=== PATIENT | female | born 1950 | race Caucasian/White ===

== ENCOUNTER 2019-04-30 10:04 | Emergency (ER) | payer MEDICARE, OTHER, SELFPAY ==
--- NOTE | ~2019-04-30 | XR_ITS ---
EXAMINATION: XR chest 2V DATE: 04/30/2019 10:47 INDICATION: Cough. TECHNIQUE: Frontal and lateral views of the chest were obtained. COMPARISON: Chest 2 views 12/06/2013 FINDINGS: Calcified right lung nodules and calcified right hilar and mediastinal lymph nodes are cons istent with old granulomatous disease. No pleural effusion or pneumothorax. The heart size is normal. There is mild chronic anterior wedging of multiple midthoracic vertebral bodies. IMPRESSION: 1. No acute cardiopulmonary disease. Reviewed, dictated and finalized at location A. OR DEPARTMENT MANAGER
[2019-04-30 10:16] VITALS: BP 136/80; PULSE 86; RESP 18; TEMP 36.8; O2SAT 96
--- NOTE | 2019-04-30 10:29 | ED.URI ---
HPI - URI/Sore Throat General Chief Complaint: Upper Respiratory Infection Stated Complaint: cough/chest congestion Time Seen by Provider: 04/30/19 10:29 Source: patient Mode of arrival: ambulatory Limitations: no limitations History of Present Illness HPI Narrative: Trupti Ruiz is a 68 yo female with a negative PMH who comes to the [facility] with upper respiratory symptoms of sinus drainage, fever, cough, some wheezing. This started on Thursday after flight from [place] Related Data Home Medications Medication Instructions Recorded Confirmed aspirin 81 mg tablet,delayed 81 mg PO DAILY 01/17/19 04/30/19 release ergocalciferol (vitamin D2) 50 mcg 50 mcg PO DAILY 01/17/19 04/30/19 (2,000 unit) capsule furosemide 20 mg tablet 20 mg PO QAM 01/17/19 04/30/19 Allergies Allergy/AdvReac Type Severity Reaction Status Date / Time SHWETA Inhibitors Allergy Mild unknown Verified 04/14/19 09:05 Cephalosporins Allergy Mild unknown Verified 04/14/19 09:05 ranitidine Allergy Mild unknown Verified 04/14/19 09:05 No Known Allergies Allergy Verified 04/14/19 09:05 Review of Systems Review of Systems: Narrative: CONSTITUTIONAL: Denies fever, chills, sweats. EYES: Denies visual changes, redness, discharge. ENT: Denies rhinorrhea, has congestion, no sore throat, otalgia. CARDIOVASCULAR: Denies chest pain, palpitations, edema. RESPIRATORY: Denies dyspnea, has wheezing, cough GASTROINTESTINAL: Denies abdominal pain, nausea, vomiting, diarrhea. GENITOURINARY: Denies dysuria, hematuria, abnormal discharge SKIN: Denies rash or itching. NEUROLOGIC: Denies numbness, or focal weakness. PSYCHIATRIC: Denies anxiety or depression. [facility] Past Medical History Medical History Arthritis of knee Borderline diabetes BP (high blood pressure) Degenerative joint disease of knee GERD (gastroesophageal reflux disease) Mixed hyperlipidemia Family History Family History Mother Hypertension Family history of arthritis Father Cerebrovascular accident Family history of diabetes mellitus in first degree relative Family history of lung cancer Family history of heart disease in male family member before age 55 Other Diabetes mellitus Family history of malignant neoplasm Social History Social History Social History: Smoking status: Never smoker Second hand tobacco smoke exposure: No Alcohol intake: never Substance use: never Substance use type: does not use Gender identity (if verbalized by the patient): Female Comments At time of signature, I agree with nursing past medical, surgical, social and family history. There is no relevant family history pertinent to the presenting complaint. Exam Narrative: Exam Narrative: GENERAL: This is a well-nourished, well-developed patient, in mild distress. HEAD: normocephalic, atraumatic. EYES: Sclera clear/white. Vision is grossly intact. EARS: External ears normal, auditory canals clear and without drainage, TMs normal without perforation. Hearing grossly intact. NOSE: External nose normal nasal discharge, nares with redness, rhinorrhea. THROAT: Mucous membranes moist, posterior pharynx erythema NECK: Neck supple, non-tender without lymphadenopathy, CARDIOVASCULAR: Regular rate and rhythm without murmurs, gallops, or rubs. RESPIRATORY: Clear to auscultation. Breath sounds equal bilaterally. No wheezes, rales, or rhonchi. GASTROINTESTINAL: Abdomen soft, non-tender, SKIN: warm, intact with no suspicious lesions or rash, good texture and turgor. NEURO: awake, alert, and oriented to person, place and time. There were no obvious focal neurologic abnormalities. Steady gait EXTREMITIES: Normal range of motion. BACK: Nontender without deformity . Course Course Emergency Course: Flu swab Chest x
== END 2019-04-30 11:05 | disposition home or self-care (01) ==
PROVIDERS: Emergency Provider Nurse Practitioner; PCP Family Medicine
DX: J06.9 Acute upper respiratory infection, unspecified (principal); K21.9 Gastro-esophageal reflux disease without esophagitis; E78.2 Mixed hyperlipidemia; M17.10 Unilateral primary osteoarthritis, unspecified knee; Z79.82 Long term (current) use of aspirin
CPT/HCPCS: 71046; 87804; 99213; G0463

== ENCOUNTER 2020-04-20 19:19 | Emergency (ER) | payer MEDICARE, OTHER, SELFPAY ==
--- NOTE | ~2020-04-20 | XR_ITS ---
EXAMINATION: XR chest 2V EXAM DATE: 04/20/2020 20:52 INDICATION: Epigastric pain radiating to chest. TECHNIQUE: Frontal and lateral projections of the chest obtained and reviewed. Comparison is made to prior examination from 04/30/2019, 03/26/2010. FINDINGS: Right upper lobe calcifications and calcified mediastinal lymphadenopathy are consistent w ith granulomas. These are not significantly changed. The lungs are otherwise clear. There are no ple ural effusions. The cardiomediastinal silhouette is within normal limits. There is no pneumothorax suspected. The bones and soft tissues are unremarkable. IMPRESSION: No acute cardiopulmonary findings. Reviewed, dictated and finalized at location A. NE WATCHMAN
--- NOTE | ~2020-04-20 | CT_ITS ---
EXAMINATION: CT abdomen pelvis w con EXAM DATE: 04/20/2020 22:57 INDICATION: Right upper quadrant pain. TECHNIQUE: Spiral CT of the abdomen and pelvis was performed following intravenous injection of 100 m L Omnipaque 350. Axial, coronal and sagittal images were reviewed. The dose-length product (DLP) fo r this examination was 734.80 mGy-cm. The exposure was tailored according to patient size (auto mA e xposure control), and iterative reconstruction (ASIR) was used as additional dose reduction technique . Comparison is made to prior examination from . FINDINGS: Liver lesion with peripheral nodular enhancement at the dome measuring 2 cm, consistent wit h hemangioma The liver, spleen, adrenal glands and pancreas are otherwise unremarkable. There are g allstones within an otherwise unremarkable gallbladder. No evidence of obstructive biliary disease. Portal and splenic veins are patent. Kidneys enhance symmetrically. There is 6 cm left renal cyst. There is no hydronephrosis. The uterus is unremarkable. The bladder is unremarkable. There is no retroperitoneal or pelvic lymphadenopathy. The appendix is normal. There is moderate-sized gastroesophageal hiatal hernia. There is expected a mount of colonic stool. No free intraperitoneal gas. The heart is normal in size. There are no p ericardial or pleural effusions. The lung bases are unremarkable. There are no osteoblastic or oste olytic lesions identified. IMPRESSION: 1. No acute intra-abdominal findings. 2. Moderate hiatal hernia. 3. Cholelithiasis Reviewed, dictated and finalized at location A. REVENUE OFFICER
[2020-04-20 20:09] VITALS: BP 179/75; PULSE 80; RESP 16; TEMP 36.5; O2SAT 97
--- NOTE | 2020-04-20 20:13 | ECG_ITS ---
Measurements Intervals [place] Rate: 80 P: 44 NV: 138 QRS: 21 QRSD: 109 T: 49 QT: 383 QTc: 444 Interpretive Statements SINUS RHYTHM NONSPECIFIC ST & T-WAVE ABNORMALITY- DIFFUSE LEADS BORDERLINE ECG Electronically Signed On 04-21-2020 7:56:35 ANTIQUE FURNITURE REPRODUCER by Eliu Frances D.O.
[2020-04-20 20:28] LABS: Basophils Percent Auto 0.4 % (0.2-1.2); Eosinophils Absolute Auto 0.2 K/mm3 (0-0.3); Eosinophils Percent Auto 2.3 % (0-4.4); Hematocrit 40.1 % (37.0-47.0); Hemoglobin 13.3 g/dL (12.0-15.0); Immature Granulocyte Absolute 0.04 K/mm3 (0.00-0.031); Immature Granulocyte Percent A 0.6 % (0-0.5); Lymphocytes Absolute Auto 1.08 K/mm3 (0.9-3.2); Lymphocytes Percent Auto 15.5 % (18.3-44.2); Mean Corpuscular HGB Conc 33.2 g/dl (32-36); Mean Corpuscular Hemoglobin 29.1 pg (26-34); Mean Corpuscular Volume 87.7 fl (80-100); Mean Platelet Volume 8.7 fl (7.4-10.4); Monocytes Absolute Auto 0.6 K/mm3 (0.1-0.6); Monocytes Percent Auto 9.1 % (2.6-8.5); Neutrophils Percent Auto 72.1 % (45.5-73.1); Platelet Count Result 174 k/mm3 (150-375); Red Blood Count 4.57 M/mm3 (4.2-5.4); Red Cell Distribution Width 12.6 % (11.5-14.5)
[2020-04-20 20:38] LABS: INR 0.9; Partial Thromboplastin Time 27.8 SECONDS (22.3-36.8); Prothrombin Time 12.7 Seconds (11.1-14.7)
[2020-04-20 20:39] LABS: Lipase 73 U/L (23-300)
[2020-04-20 20:40] LABS: Anion Gap 0 mmol/L (8-16); Blood Urea Nitrogen 15 mg/dL (7-17); Calcium 9.5 mg/dL (8.4-10.2); Carbon Dioxide 37 mmol/L (22-30); Chloride 102 mmol/L (98-107); Estimated CRCL calculation 59 ml/min; Estimated Glomerular Filt Rate > 60; Glucose 169 mg/dL (65-105); Potassium 4.1 mmol/L (3.4-5.0); Sodium 139 mmol/L (137-145)
[2020-04-20 20:52] LABS: Troponin I < 0.012 ng/mL (0.000-0.034)
[2020-04-20 21:50] VITALS: BP 147/76; PULSE 92; RESP 24; TEMP 37.1; O2SAT 96
[2020-04-20] MEDS: SODIUM CHLORIDE 0.9% IV 1,000 ML 999 ML IV CONT (22:20)
--- NOTE | 2020-04-20 22:30 | ED.ABDPAIN ---
HPI - Abdominal Pain General Chief Complaint: Abdominal Pain Stated Complaint: abd pain into back Time Seen by Provider: 04/20/20 21:49 Source: patient Mode of arrival: ambulatory Limitations: no limitations History of Present Illness HPI narrative: Patient is 69 years old white female was sitting at the wrist suddenly developed epigastric pain, like a knot radiating all the way to her back, associated with nausea, started 7 PM today. Patient received aspirin at home prior to arrival to the emergency room. Patient reports that pain been intermittent since. Patient denies any chest pain or shortness of breath or having similar symptoms. History of hypertension, GERD on Protonix which should be 20 mg once a day patient take only half a tablet once a day.. Patient does not smoke or drink or uses drugs. Denied any history of abdominal surgery or coronary artery disease. Related Data Home Medications Medication Instructions Recorded Confirmed aspirin 81 mg tablet,delayed 81 mg PO DAILY 01/17/19 12/09/19 release Allergies Allergy/AdvReac Type Severity Reaction Status Date / Time SHWETA Inhibitors Allergy Mild unknown Verified 04/20/20 22:19 Cephalosporins Allergy Mild unknown Verified 04/20/20 22:19 ranitidine Allergy Mild unknown Verified 04/20/20 22:19 Review of Systems Review of Systems: Narrative: CONSTITUTIONAL: Denies fever, chills, or sweats. EYES: Denies visual changes, redness, or discharge. ENT: Denies rhinorrhea, congestion, sore throat, or otalgia. CARDIOVASCULAR: Denies chest pain, palpitations, or edema. RESPIRATORY: Denies cough or dyspnea. GASTROINTESTINAL: Denies abdominal pain, nausea, vomiting, or diarrhea. GENITOURINARY: Denies dysuria or hematuria. SKIN: Denies rash or itching. MUSCULOSKELETAL: Denies back pain, joint pain, or myalgia. NEUROLOGIC: Denies headache, numbness, or weakness. PSYCHIATRIC: Denies anxiety or depression. [facility] Past Medical History Medical History (Updated 04/20/20 @ 23:31 by Hany Bates MD) Arthritis of knee Bilateral knee pain Borderline diabetes BP (high blood pressure) Contusion of left wrist, sequela Degenerative joint disease of knee Ganglion, finger joint of right hand GERD (gastroesophageal reflux disease) Laryngitis Mixed hyperlipidemia Pollen allergies Seasonal allergies Family History Family History Mother Hypertension Family history of arthritis Father Cerebrovascular accident Family history of diabetes mellitus in first degree relative Family history of lung cancer Family history of heart disease in male family member before age 55 Other Diabetes mellitus Family history of malignant neoplasm Social History Social History Social History: Smoking status: Never smoker Second hand tobacco smoke exposure: No Alcohol intake: never Substance use: never Substance use type: does not use Gender identity (if verbalized by the patient): Female Exam Narrative: Exam Narrative: General appearance: Well-developed, well-nourished Skin: Normal color Head: Normocephalic, nontraumatic Eyes: Clear conjunctiva ENT: Oropharynx normal, ears normal, nose normal Neck: Supple, nontender Chest and respiratory: Airway patent, no respiratory distress, no accessory muscle use Heart: Regular rate/rhythm Abdomen: Soft, moderate tenderness epigastric area, no organomegaly, quiet bowel sounds Vascular: Normal peripheral pulses, normal capillary refill. Musculoskeletal: Normal range of motion, nontender back Neurologic: Alert and oriented ?3, GREENHOUSE SPECIALIST is normal as tested, no gross motor deficit
[2020-04-20 22:37] VITALS: BP 146/79; PULSE 81; RESP 22; O2SAT 97
[2020-04-20] MEDS: BELLADONNA ALK/PHENOB ELIX 10 ML, MAG HYDROX/ALUMINUM HYD/SIMETH 30 ML, LIDOCAINE HCL 2... PO (22:49)
[2020-04-20 23:37] LABS: Troponin I < 0.012 ng/mL (0.000-0.034)
[2020-04-20 23:40] VITALS: BP 129/82; PULSE 80; RESP 14; O2SAT 97
== END 2020-04-20 23:40 | disposition home or self-care (01) ==
PROVIDERS: Emergency Provider Emergency Medicine; PCP Family Medicine
DX: K44.9 Diaphragmatic hernia without obstruction or gangrene (principal); K21.00 Gastro-esophageal reflux disease with esophagitis, without bleeding; K80.20 Calculus of gallbladder without cholecystitis without obstruction; I10 Essential (primary) hypertension; R73.03 Prediabetes; M17.10 Unilateral primary osteoarthritis, unspecified knee; E78.2 Mixed hyperlipidemia
CPT/HCPCS: 36415; 71046; 74177; 80048; 83690; 84484; 85025; 85610; 85730; 93005; 96360; 99284; A9270; J7030; Q9967

== ENCOUNTER 2020-10-05 16:07 | Emergency (ER) | payer MEDICARE, OTHER, SELFPAY ==
[2020-10-05 16:15] VITALS: BP 143/81; PULSE 80; RESP 16; TEMP 36.1; O2SAT 99
--- NOTE | 2020-10-05 16:35 | ED.URI ---
HPI - URI/Sore Throat General Chief Complaint: Upper Respiratory Infection Stated Complaint: Sore throat Source: patient and RN notes reviewed Limitations: no limitations History of Present Illness HPI Narrative: The vaccinated patient, a non-smoker/occ drinker, presents with a weeklong history of sore throat, eqar fullness and some postnasal drip. Symptoms are mild, unrelieved with OTC preparations like Mucinex or Jil. No fever, earache, cough; no loss of taste/smell, S OB, vomiting/diarrhea, CP, rash. She has reported sensitivity to cephalosporins, and has taken a Z-Rishi in the past. Related Data Home Medications Medication Instructions Recorded Confirmed aspirin 81 mg tablet,delayed 81 mg PO DAILY 01/17/19 08/08/20 release fexofenadine [Jil] 180 mg PO DAILY 10/05/20 10/05/20 Allergies Allergy/AdvReac Type Severity Reaction Status Date / Time SHWETA Inhibitors Allergy Mild unknown Verified 10/05/20 17:00 Cephalosporins Allergy Mild unknown Verified 10/05/20 17:00 ranitidine Allergy Mild unknown Verified 10/05/20 17:00 Review of Systems Review of Systems: General/Constitutional: No weight loss,fever Eyes: N0: Redness,discharge Ears/Nose/Throat: No: Epistaxis,ear discharge Respiratory: Denies: Hemoptysis Gastrointestinal: No Vomiting, Bleeding-rectal Skin: No Lumps, eruption Neurologic: No Focal Weakness,Sz Hematologic: Denies: Petechiae/Purpura Psychiatric: No: Suicida ideationl All Other Systems: Reviewed and Negative [facility] Past Medical History Medical History Arthritis of knee Bilateral knee pain Borderline diabetes BP (high blood pressure) Contusion of left wrist, sequela Degenerative joint disease of knee Ganglion, finger joint of right hand GERD (gastroesophageal reflux disease) Laryngitis Left knee DJD Mixed hyperlipidemia Pollen allergies Right knee DJD Seasonal allergies Family History Family History Mother Hypertension Family history of arthritis Father Cerebrovascular accident Family history of diabetes mellitus in first degree relative Family history of lung cancer Family history of heart disease in male family member before age 55 Other Diabetes mellitus Family history of malignant neoplasm Social History Social History (Updated 08/08/20 @ 10:30 by LETICIA Iraheta Social History: Second hand tobacco smoke exposure: No Alcohol intake: never Substance use: never Substance use type: does not use Gender identity (if verbalized by the patient): Female Exam Narrative: General Appearance: Well appearing, Well nourished EYE: PERRLA, Conjunctiva clear Ears: Auditory canal normal, TM normal Nose: Rhinorrhea, Mucousal erythema Mouth/Throat: MM moist, Uvula midline, Pharyngeal erythema Neck: Supple, No adenopathy Respiratory: No respiratory distress, Breath sounds equal, Clear to auscultation Cardiovascular: RRR, No JVD Musculoskeletal: Non tender, Normal strength Skin: Warm, Dry Neurological: A&O x3, CN II-XII intact Psychiatric: Normal mood, Normal affect Course Vital Signs Vital signs: Vital Signs Temperature 97 F L 10/05/20 16:15 Pulse Rate 80 10/05/20 16:15 Respiratory Rate 16 10/05/20 16:15 Blood Pressure 143/81 H 10/05/20 16:15 Pulse Oximetry 99 10/05/20 16:15 Temperature 97 F L 10/05/20 16:15 Pulse Rate 80 10/05/20 16:15 Respiratory Rate 16 10/05/20 16:15 Blood Pressure 143/81 H 10/05/20 16:15 Pulse Oximetry 99 10/05/20 16:15 MDM - URI/Sore Throat Lab Data Labs: Lab Results 10/05/20 Range/Units 16:33 POC SARS CoV-2 Ag Negative (Negative) Strep Screen Presumptive Negative *(Reference Range: Negative)* Discharge Plan Discharge Clinical Impression: Odynophagia, Nasal congestion
== END 2020-10-05 17:05 | disposition home or self-care (01) ==
PROVIDERS: Emergency Provider Emergency Medicine; PCP Family Medicine
DX: R13.10 Dysphagia, unspecified (principal); R09.81 Nasal congestion; Z20.822 Contact with and (suspected) exposure to COVID-19; K21.9 Gastro-esophageal reflux disease without esophagitis; M17.0 Bilateral primary osteoarthritis of knee; Z79.82 Long term (current) use of aspirin
CPT/HCPCS: 87081; 87426; 87880; 99213; C9803; G0463

== ENCOUNTER → 2021-02-20 02:48 | Outpatient (CLI) | payer MEDICARE, OTHER, SELFPAY ==
[2021-02-20 19:40] LABS: SARS-CoV-2 RNA PCR Negative
== END ==
PROVIDERS: PCP Family Medicine; Visit Provider Nurse Practitioner Gerontology
DX: Z20.822 Contact with and (suspected) exposure to COVID-19 (principal)
CPT/HCPCS: C9803; U0003; U0005

== ENCOUNTER → 2021-03-29 08:01 | Outpatient (CLI) | payer MEDICARE, OTHER, SELFPAY ==
[2021-03-29 18:24] LABS: SARS-CoV-2 RNA PCR Negative
== END ==
PROVIDERS: PCP Family Medicine; Visit Provider Family Medicine
DX: R68.89 Other general symptoms and signs (principal); Z20.822 Contact with and (suspected) exposure to COVID-19
CPT/HCPCS: C9803; U0003; U0005

== ENCOUNTER 2021-04-01 14:11 | Outpatient (CLI) | payer MEDICARE, OTHER, SELFPAY ==
--- NOTE | ~2021-04-01 | XR_ITS ---
EXAMINATION: XR abdomen/kub 1V EXAM DATE: 04/01/2021 14:34 INDICATION: R10.9 - Unspecified abdominal pain . TECHNIQUE: Frontal projection(s) of the abdomen for interpretation. There is no prior study for oly gatica. FINDINGS: There is expected amount of colonic stool and gas. No small bowel dilation, nonobstructiv e bowel gas pattern. Calcifications in the pelvis are believed to be phleboliths. There is no orga nomegaly suspected. The bones are unremarkable. IMPRESSION: Unremarkable abdomen x-ray exam. Reviewed, dictated and finalized at location G. CONSULTANT
== END 2021-04-01 14:12 | disposition home or self-care (01) ==
PROVIDERS: PCP Family Medicine; Visit Provider Nurse Practitioner Gerontology
DX: R10.9 Unspecified abdominal pain (principal)
CPT/HCPCS: 74018

== ENCOUNTER → 2021-04-18 11:01 | Outpatient (CLI) | payer MEDICARE, OTHER, SELFPAY ==
--- NOTE | ~2021-04-18 | DEXA_ITS ---
Bone Density Report Name: EDU WONG Age: 70 Sex: Female Ethnicity: White Date of : 1950 Indication: postmenopausal; screening for osteoporosis; parental hip fracture; height loss; prior fracture; Referring Provider: TREMAINE GARDNER Study: Bone densitometry was performed. Exam Date: April 18, 2021 Accession number: [id number] Bone Density: Region BMD T-score Z-score Classification AP Spine (L1-L4) 1.000 -0.4 1.7 Normal Femoral Neck (Left) 0.703 -1.3 0.5 Osteopenia Total Hip (Left) 0.888 -0.4 1.1 Normal Femoral Neck (Right) 0.733 -1.0 0.8 Normal Total Hip (Right) 0.837 -0.9 0.7 Normal Total Hip Mean 0.863 -0.7 0.9 Normal World Health Organization criteria for BMD impression classify patients as: Normal (T-score at or above -1.0), Osteopenia (T-score between -1.0 and -2.5), or Osteoporosis (T-score at or below -2.5). 10-year Fracture Risk(1): Major Osteoporotic Fracture 21% Hip Fracture 4.0% Reported Risk Factors: [place] (), Neck BMD=0.703, BMI=35.9, previous fracture, parental fracture (1) FRAX(R) Version 3.08. Fracture probability calculated for an untreated patient. Fracture probability may be lower if the patient has received treatment. Previous Exams: Region Exam Age BMD T-score BMD Change BMD Change Date g/cm2 vs Baseline vs Previous AP Spine(L1-L4) 04/18/2021 70 1.000 -0.4 -0.168 -0.003 04/15/2018 67 1.002 -0.4 -0.165 0.014 03/31/2016 65 0.989 -0.5 -0.179 0.033* 03/19/2013 62 0.956 -0.8 -0.212 -0.035* 08/30/2010 60 0.991 -0.5 -0.177 -0.100* 12/03/2006 56 1.090 0.4 -0.077 -0.077 10/09/2003 53 1.167 1.1 Total Hip(Left) 04/18/2021 70 0.888 -0.4 -0.207 -0.080 04/15/2018 67 0.967 0.2 -0.128 0.061 03/31/2016 65 0.906 -0.3 -0.189 -0.078* 03/19/2013 62 0.984 0.3 -0.110 0.062* 08/30/2010 60 0.922 -0.2 -0.172 -0.159* 12/03/2006 56 1.082 1.1 -0.013 -0.013 10/09/2003 53 1.095 1.3 Total Hip(Right) 04/18/2021 70 0.837 -0.9 -0.190 -0.068 04/15/2018 67 0.905 -0.3 -0.122 0.071 03/31/2016 65 0.834 -0.9 -0.193 -0.040* 03/19/2013 62 0.874 -0.6 -0.152 0.040* 08/30/2010 60 0.834 -0.9 -0.193 -0.178* 12/03/2006 56 1.012 0.6 -0.015 -0.015 10/09/2003 53 1.027 0.7
== END ==
PROVIDERS: PCP Family Medicine; Visit Provider Obstetrics & Gynecology Gynecology
DX: Z78.0 Asymptomatic menopausal state (principal); M85.852 Other specified disorders of bone density and structure, left thigh
CPT/HCPCS: 77080

== ENCOUNTER 2021-04-30 09:55 | Outpatient (CLI) | payer MEDICARE, OTHER, SELFPAY ==
--- NOTE | ~2021-04-30 | US_ITS ---
US renal BI 04/30/2021 10:24 Procedure: Realtime transabdominal ultrasound of the kidneys and bladder. Indication: Renal cyst Comparison: CT dated 04/20/2020 Findings: Renal echotexture is normal bilaterally without hydronephrosis, contour deforming mass or r enal calculus. There is a left renal cyst measuring 6.2 x 5.5 x 5.1 cm with an internal septation. Th e right kidney measures 9.8 cm and left kidney measures 9.7 cm. Bladder within normal limits. Impression: 1: Left renal cyst measuring 6.2 cm maximum dimension. Reviewed, dictated and finalized at location A. NFORMATICS DEVELOPER Impression: 1: Left renal cyst measuring 6.2 cm maximum dimension.
== END 2021-04-30 09:56 | disposition home or self-care (01) ==
PROVIDERS: PCP Family Medicine; Visit Provider Family Medicine
DX: N28.1 Cyst of kidney, acquired (principal); R10.9 Unspecified abdominal pain; R31.9 Hematuria, unspecified
CPT/HCPCS: 76775

== ENCOUNTER 2021-05-27 11:26 | Emergency (ER) | payer MEDICARE, OTHER, SELFPAY ==
[2021-05-27 13:10] VITALS: BP 144/81; PULSE 81; RESP 18; TEMP 36.6; O2SAT 100
--- NOTE | 2021-05-27 13:43 | ED.URI ---
HPI - URI/Sore Throat General Chief Complaint: Upper Respiratory Infection Stated Complaint: sorethroat,stuffy nose Time Seen by Provider: 05/27/21 13:35 Source: patient, RN notes reviewed and old records reviewed Mode of arrival: ambulatory Limitations: no limitations History of Present Illness HPI Narrative: 70 years female who presents to [facility] with complaints of approximately 10 days of sinus drainage and sinus pressure worse the past 5 days but was exposed to daughter 1 week ago who tested positive for COVID. Patient reports that she is concerned that she may of been exposed to COVID even though patient states that daughter was masked. Patient reports that she has had a sore throat and frontal headache which she rates as 6/10 and at times is sharp. Patient reports that home COVID test this morning was negative., states she has had COVID and flu vaccinations.She has been taking Zyrtec for her symptoms and using nasal spray. MD elicited complaint: sore throat and other (possible exposure to COVID) Related Data Home Medications Medication Instructions Recorded Confirmed aspirin 81 mg tablet,delayed 81 mg PO DAILY 01/17/19 05/27/21 release fexofenadine [Jil] 180 mg PO DAILY 10/05/20 05/27/21 azelastine 137 mcg (0.1 %) nasal 137 mcg INTRANASAL Q12H 11/14/20 05/27/21 spray aerosol Allergies Allergy/AdvReac Type Severity Reaction Status Date / Time SHWETA Inhibitors Allergy Mild unknown Verified 05/27/21 13:25 Cephalosporins Allergy Mild unknown Verified 05/27/21 13:25 ranitidine Allergy Mild unknown Verified 05/27/21 13:25 Review of Systems Review of Systems: CONSTITUTIONAL: No known fever, chills, or sweats. EYES: Denies visual changes, redness, or discharge. ENT: Positive rhinorrhea, congestion, sore throat, no otalgia. CARDIOVASCULAR: Denies chest pain, palpitations, or edema. RESPIRATORY: Denies cough or dyspnea. GASTROINTESTINAL: Denies abdominal pain, nausea, vomiting, or diarrhea. GENITOURINARY: Denies dysuria or hematuria. SKIN: Denies rash or itching. MUSCULOSKELETAL: Denies back pain, joint pain, or myalgia. NEUROLOGIC:Positive for frontal headache, no numbness, or weakness. PSYCHIATRIC: Denies anxiety or depression. All systems reviewed & are unremarkable except as noted in HPI and below PMFSH Past Medical History Medical History (Updated 05/28/21 @ 00:00 by Denice Ramirez) Allergic rhinitis Arthritis of knee Bilateral knee pain Borderline diabetes BP (high blood pressure) Contusion of left wrist, sequela Degenerative joint disease of knee Ganglion, finger joint of right hand GERD (gastroesophageal reflux disease) Laryngitis Left knee DJD Mixed hyperlipidemia Obesity (BMI 30.0-34.9) Pollen allergies Right knee DJD Seasonal allergies Surgical History Surgical History (Updated 05/28/21 @ 08:10 by Cindy Napoles NP) History of cataract surgery Bilateral with lens implants History of dilatation and curettage S/P breast biopsy, left Family History Family History Mother Hypertension Family history of arthritis Father Cerebrovascular accident Family history of diabetes mellitus in first degree relative Family history of lung cancer Family history of heart disease in male family member before age 55 Other Diabetes mellitus Family history of malignant neoplasm Social History Social History Social History: Smoking status: Never smoker Second hand tobacco smoke exposure: No Alcohol intake: never Substance use: never Substance use type: does not use Gender identity (if verbalized by the patient): Female Sexual Orientation (if Verbalized by the Patient): Straight or Heterosexual Comments At time of signature, agree with nursing past medical, surgical, social and family history. There is no relevant family history pertinent to the pres
== END 2021-05-27 14:08 | disposition home or self-care (01) ==
PROVIDERS: Emergency Provider Registered Nurse; PCP Family Medicine
DX: J32.9 Chronic sinusitis, unspecified (principal); Z20.822 Contact with and (suspected) exposure to COVID-19; M17.10 Unilateral primary osteoarthritis, unspecified knee; R73.03 Prediabetes; I10 Essential (primary) hypertension; K21.9 Gastro-esophageal reflux disease without esophagitis; E78.2 Mixed hyperlipidemia; M17.0 Bilateral primary osteoarthritis of knee; Z79.82 Long term (current) use of aspirin
CPT/HCPCS: 87081; 87426; 87880; 99213; C9803; G0463

== ENCOUNTER 2021-09-23 10:23 | Emergency (ER) | payer MEDICARE, OTHER, SELFPAY ==
--- NOTE | 2021-09-23 10:36 | ED.URI ---
HPI - URI/Sore Throat General Chief Complaint: Upper Respiratory Infection Stated Complaint: Cough,Sinus Time Seen by Provider: 09/23/21 11:00 Source: patient and RN notes reviewed Mode of arrival: ambulatory Limitations: no limitations History of Present Illness HPI Narrative: 71-year-old female with history of diabetes presents with concern for 11-day history of sinus congestion, pressure, drainage. Reports she began feeling worse on with cough. She reports persistent productive cough. Reports lying flat increases her coughing. She reports she has been taking cough drops and Coricidin HBP with little relief. She denies shortness of breath. Reports chest wall pain with coughing. She reports she took a COVID test yesterday that was negative, she requests a another COVID test. She reports her grandchild had a double ear infection MD elicited complaint: cough and nasal congestion Related Data Home Medications Medication Instructions Recorded Confirmed aspirin 81 mg tablet,delayed 81 mg PO DAILY 01/17/19 09/23/21 release (Adult Low Dose Aspirin) azelastine 137 mcg (0.1 %) nasal 137 mcg intranasal Q12H 11/14/20 09/23/21 spray aerosol Allergies Allergy/AdvReac Type Severity Reaction Status Date / Time SHWETA Inhibitors Allergy Mild unknown Verified 09/23/21 10:45 Cephalosporins Allergy Mild unknown Verified 09/23/21 10:45 ranitidine Allergy Mild unknown Verified 09/23/21 10:45 Review of Systems Review of Systems: CONSTITUTIONAL: Reports malaise. Denies chills, sweats, or fever. EYES: Denies visual changes, redness, or discharge. ENT: Reports rhinorrhea, congestion, sinus pain. Denies otalgia and sore throat. CARDIOVASCULAR: Denies chest pain, palpitations, or edema. RESPIRATORY: Reports productive cough. Denies dyspnea. GASTROINTESTINAL: Denies abdominal pain, nausea, vomiting, diarrhea SKIN: Denies rash or itching. MUSCULOSKELETAL: Denies myalgia. NEUROLOGIC: Reports headache. All systems reviewed & are unremarkable except as noted in HPI and below PMFSH Past Medical History Medical History Allergic rhinitis Arthritis of knee Bilateral knee pain Borderline diabetes BP (high blood pressure) Constipation Contusion of left wrist, sequela Degenerative joint disease of knee Ganglion, finger joint of right hand GERD (gastroesophageal reflux disease) Laryngitis Left knee DJD Mixed hyperlipidemia Obesity (BMI 30.0-34.9) Pollen allergies Right knee DJD Seasonal allergies Surgical History Surgical History History of cataract surgery Bilateral with lens implants History of dilatation and curettage S/P breast biopsy, left Family History Family History Mother Hypertension Family history of arthritis Father Cerebrovascular accident Family history of diabetes mellitus in first degree relative Family history of lung cancer Family history of heart disease in male family member before age 55 Other Diabetes mellitus Family history of malignant neoplasm Social History Social History Social History: Smoking status: Never smoker Second hand tobacco smoke exposure: No Alcohol intake: never Substance use: never Substance use type: does not use Gender identity (if verbalized by the patient): Female Sexual Orientation (if Verbalized by the Patient): Straight or Heterosexual Comments At time of signature, agree with nursing past medical, surgical, social and family history. There is no relevant family history pertinent to the presenting complaint Exam Narrative: GENERAL: Nontoxic appearing and in no acute distress. HEAD: Normocephalic EYES: PERRLA, conjunctivae clear ENT: Nares clear, turbinates edematous and erythematous, yellow discharge. Mucous membranes moist. TM pearly
[2021-09-23 10:50] VITALS: BP 131/77; PULSE 84; RESP 16; TEMP 36.9; O2SAT 100
== END 2021-09-23 11:20 | disposition home or self-care (01) ==
PROVIDERS: Emergency Provider Nurse Practitioner; PCP Family Medicine
DX: J32.9 Chronic sinusitis, unspecified (principal); J40 Bronchitis, not specified as acute or chronic; Z20.822 Contact with and (suspected) exposure to COVID-19; I10 Essential (primary) hypertension; K21.9 Gastro-esophageal reflux disease without esophagitis; E78.2 Mixed hyperlipidemia; E66.9 Obesity, unspecified; Z68.33 Body mass index [BMI] 33.0-33.9, adult; M17.0 Bilateral primary osteoarthritis of knee; Z98.42 Cataract extraction status, left eye; Z98.41 Cataract extraction status, right eye; Z96.1 Presence of intraocular lens
CPT/HCPCS: 87426; 99213; C9803; G0463

== ENCOUNTER 2022-01-21 10:07 | Emergency (ER) | payer MEDICARE, OTHER, SELFPAY ==
[2022-01-21 11:03] VITALS: BP 148/88; PULSE 95; RESP 18; TEMP 36.7; O2SAT 99
--- NOTE | 2022-01-21 11:27 | ED.URI ---
HPI - URI/Sore Throat General Chief Complaint: Upper Respiratory Infection Stated Complaint: sorethroat Time Seen by Provider: 01/21/22 11:27 Source: patient Mode of arrival: ambulatory Limitations: no limitations History of Present Illness HPI Narrative: 71-year-old female presents with complaint of nasal congestion, left ear pain. Has had symptoms for 3 days. Afebrile. No body aches chills. denies nausea vomiting diarrhea. Wants COVID test prior to Thanksgiving alliance party. all systems reviewed and negative except as noted above. Related Data Home Medications Medication Instructions Recorded Confirmed aspirin 81 mg tablet,delayed 81 mg PO DAILY 01/17/19 12/11/21 release (Adult Low Dose Aspirin) azelastine 137 mcg (0.1 %) nasal 137 mcg intranasal Q12H 11/14/20 12/11/21 spray aerosol Allergies Allergy/AdvReac Type Severity Reaction Status Date / Time SHWETA Inhibitors Allergy Mild unknown Verified 12/11/21 07:50 Cephalosporins Allergy Mild unknown Verified 12/11/21 07:50 ranitidine Allergy Mild unknown Verified 12/11/21 07:50 Review of Systems Review of Systems: CONSTITUTIONAL: denies fever, chills, or sweats. EYES: Denies visual changes, redness, or discharge. ENT: Denies rhinorrhea. Reports congestion, sore throat, and left ear pain. CARDIOVASCULAR: Denies chest pain, palpitations, or edema. RESPIRATORY: Denies cough or dyspnea. GASTROINTESTINAL: Denies abdominal pain, nausea, vomiting, or diarrhea. GENITOURINARY: Denies dysuria or hematuria. SKIN: Denies rash or itching. MUSCULOSKELETAL: Denies back pain, joint pain, or myalgia. NEUROLOGIC: Denies headache, numbness, or weakness. PSYCHIATRIC: Denies anxiety or depression. All other systems reviewed are negative, except as documented in HPI. [facility] Past Medical History Medical History Allergic rhinitis Arthritis of knee Bilateral knee pain Borderline diabetes BP (high blood pressure) Constipation Contusion of left wrist, sequela Degenerative joint disease of knee Ganglion, finger joint of right hand GERD (gastroesophageal reflux disease) Laryngitis Left knee DJD Mixed hyperlipidemia Obesity (BMI 30.0-34.9) Pollen allergies Right knee DJD Seasonal allergies Surgical History Surgical History History of cataract surgery Bilateral with lens implants History of dilatation and curettage S/P breast biopsy, left Family History Family History Mother Hypertension Family history of arthritis Father Cerebrovascular accident Family history of diabetes mellitus in first degree relative Family history of lung cancer Family history of heart disease in male family member before age 55 Other Diabetes mellitus Family history of malignant neoplasm Social History Social History Social History: Smoking status: Never smoker Second hand tobacco smoke exposure: No Alcohol intake: never Substance use: never Substance use type: does not use Gender identity (if verbalized by the patient): Female Sexual Orientation (if Verbalized by the Patient): Straight or Heterosexual Comments At time of signature, agree with nursing past medical, surgical, social and family history. There is no relevant family history pertinent to the presenting complaint. Exam Narrative: GENERAL: This is a well-nourished, well-developed patient, in no apparent distress. HEAD: normocephalic, atraumatic. EYES: PERRL. Sclera clear/white. Vision is grossly intact. EARS: External ears normal, auditory canals clear and without drainage, Mild fluid bilateral TMs, dull light reflex no erythema. NOSE: External nose normal with Clear nasal drainage, moderate congestion. THROAT: Mucous membranes moist, posterior pharynx clear. NECK: Neck supple,
== END 2022-01-21 12:05 | disposition home or self-care (01) ==
PROVIDERS: Emergency Provider Nurse Practitioner Family; PCP Family Medicine
DX: J01.90 Acute sinusitis, unspecified (principal); B97.89 Other viral agents as the cause of diseases classified elsewhere; E78.2 Mixed hyperlipidemia; Z20.822 Contact with and (suspected) exposure to COVID-19
CPT/HCPCS: 87081; 87426; 87880; 99213; C9803; G0463

== ENCOUNTER 2022-04-04 08:02 | Emergency (ER) | payer MEDICARE, OTHER, SELFPAY ==
--- NOTE | 2022-04-04 08:09 | ED.URI ---
HPI - URI/Sore Throat General Chief Complaint: Upper Respiratory Infection Stated Complaint: sorethroat Time Seen by Provider: 04/04/22 08:15 Source: patient, RN notes reviewed and old records reviewed Mode of arrival: ambulatory Limitations: no limitations History of Present Illness HPI Narrative: 71-year-old female presents to the [facility] with complaints of a sore throat since Thursday, 4 days. Has a history of postnasal drip, allergies, diabetes, hypertension and acid reflux. Has been taking Coricidin for her symptoms. Patient is concerned because she has a new grand baby on the way, wants to be tested as well for COVID and strep. patient denies any other symptoms other than a sore throat. MD elicited complaint: sore throat Onset (ago): day(s) (4) Related Data Home Medications Medication Instructions Recorded Confirmed aspirin 81 mg tablet,delayed 81 mg PO DAILY 01/17/19 04/04/22 release (Adult Low Dose Aspirin) azelastine 137 mcg (0.1 %) nasal 137 mcg intranasal Q12H 11/14/20 04/04/22 spray aerosol Allergies Allergy/AdvReac Type Severity Reaction Status Date / Time SHWETA Inhibitors Allergy Mild unknown Verified 01/21/22 12:09 Cephalosporins Allergy Mild unknown Verified 01/21/22 12:09 ranitidine Allergy Mild unknown Verified 01/21/22 12:09 Review of Systems Review of Systems: All systems reviewed & are unremarkable except as noted in HPI and below Constitutional: Constitutional: Reports no additional constitutional complaints and Denies fever(s) Eyes: Eyes: Reports no additional eye complaints ENT: Reports as per HPI, Denies nasal congestion and Reports sore throat Cardiovascular: Cardiovascular: Reports no additional cardiovascular complaints, Denies chest pain and Denies dyspnea Respiratory: Respiratory: Reports no additional respiratory complaints, Denies chest congestion, Denies cough and Denies dyspnea Gastrointestinal: Gastrointestinal: Reports no additional gastrointestinal complaints, Denies abdominal pain, Denies nausea and Denies vomiting Musculoskeletal: Musculoskeletal: Reports no additional musculoskeletal complaints Integumentary/Breasts: Skin/Breast: Reports system reviewed and no additional complaints, except as docu Neurologic: Reports system reviewed and no additional complaints, except as documented Psychiatric: Psychiatric: Reports no additional psychiatric complaints Allergic/Immunologic: Allergic/Immunologic: Reports no additional allergic/immunologic complaints PMFSH Past Medical History Medical History Allergic rhinitis Arthritis of knee Bilateral knee pain Borderline diabetes BP (high blood pressure) Constipation Contusion of left wrist, sequela Degenerative joint disease of knee Ganglion, finger joint of right hand GERD (gastroesophageal reflux disease) Laryngitis Left knee DJD Mixed hyperlipidemia Obesity (BMI 30.0-34.9) Pollen allergies Right knee DJD Seasonal allergies Surgical History Surgical History History of cataract surgery Bilateral with lens implants History of dilatation and curettage S/P breast biopsy, left Family History Family History Mother Hypertension Family history of arthritis Father Cerebrovascular accident Family history of diabetes mellitus in first degree relative Family history of lung cancer Family history of heart disease in male family member before age 55 Other Diabetes mellitus Family history of malignant neoplasm Social History Social History Social History: Smoking status: Never smoker Second hand tobacco smoke exposure: No Alcohol intake: never Substance use: never Substance use type: does not use Living arrangements: with family Occupation/Education: retired [employer]
[2022-04-04 08:14] VITALS: BP 148/86; PULSE 86; RESP 18; TEMP 36.6; O2SAT 99
== END 2022-04-04 08:45 | disposition home or self-care (01) ==
PROVIDERS: Emergency Provider Nurse Practitioner; PCP Family Medicine
DX: J02.9 Acute pharyngitis, unspecified (principal); Z20.822 Contact with and (suspected) exposure to COVID-19; R73.03 Prediabetes; M17.0 Bilateral primary osteoarthritis of knee; K21.9 Gastro-esophageal reflux disease without esophagitis; E78.2 Mixed hyperlipidemia; Z98.42 Cataract extraction status, left eye; Z98.41 Cataract extraction status, right eye; Z96.1 Presence of intraocular lens
CPT/HCPCS: 87081; 87426; 87880; 99213; C9803; G0463

== ENCOUNTER 2022-05-14 15:56 | Outpatient (CLI) | payer MEDICARE, OTHER, SELFPAY ==
--- NOTE | ~2022-05-14 | US_ITS ---
EXAMINATION: US venous doppler [facility] DATE: 05/14/2022 17:35 INDICATION: M79.605 - Pain in left leg . TECHNIQUE: Grayscale images without and with compression and Doppler images of the left lower extremi ty veins were obtained. COMPARISON: None FINDINGS: The left common femoral vein, profunda femoral vein, femoral vein, popliteal vein, peroneal vein, pos terior tibial veins, gastrocnemius vein, and greater saphenous vein are patent. IMPRESSION: 1. Patent left lower extremity veins. No evidence of deep venous thrombosis. Reviewed, dictated and finalized at location K.
== END 2022-05-14 15:57 | disposition home or self-care (01) ==
PROVIDERS: PCP Family Medicine; Visit Provider Physician Assistant
DX: M79.605 Pain in left leg (principal)
CPT/HCPCS: 93971

== ENCOUNTER 2022-06-03 14:45 | Outpatient (CLI) | payer MEDICARE, OTHER, SELFPAY ==
[2022-06-03 15:54] LABS: Iron 21 ug/dL (37-170)
[2022-06-03 16:03] LABS: Percent Iron Saturation 5 % (20-50)
== END 2022-06-03 14:46 | disposition home or self-care (01) ==
PROVIDERS: PCP Family Medicine; Visit Provider Physician Assistant
DX: D64.9 Anemia, unspecified (principal)
CPT/HCPCS: 36415; 82607; 83540; 83550

== ENCOUNTER 2022-06-04 12:38 | Outpatient (CLI) | payer MEDICARE, OTHER, SELFPAY ==
[2022-06-04 13:09] LABS: IFOB Positive Control Positive; Immunochemical Fecal Occult Bl Negative (N)
== END 2022-06-04 12:39 | disposition home or self-care (01) ==
PROVIDERS: PCP Family Medicine; Visit Provider Physician Assistant
DX: D64.9 Anemia, unspecified (principal)
CPT/HCPCS: 82274

== ENCOUNTER 2022-08-29 04:59 | Day surgery (SDC) | payer MEDICARE, OTHER, SELFPAY ==
[2022-08-14 11:17] VITALS: BMI 32.4
[2022-08-29 06:26] VITALS: BP 146/86; PULSE 81; RESP 18; TEMP 36.2; O2SAT 97
[2022-08-29] MEDS: LACTATED RINGERS 1,000 ML 150 ML IV CONT (06:38)
[2022-08-29 06:40] LABS: Glucose Point of Care 136 mg/dl (65-105)
--- NOTE | 2022-08-29 07:23 | WPDANESEPPF ---
Anes - Initial Pre Proc Eval Procedure: Operation Date: 08/29/22 07:30 Proposed Procedures p Screening Colonoscopy - Eliel Palmer MD Date/Time: 08/29/22 07:23 Surgeon: Eliel Palmer MD Pre Op Diagnosis: neoplasm screening Patient Data Age: 72 Gender: F Height: 1.6 m Weight: 86 kg Last Vital Signs Temp 97.2 F L 08/29/22 06:26 Pulse 81 08/29/22 06:26 Resp 18 08/29/22 06:26 BP 146/86 H 08/29/22 06:26 Pulse Ox 97 08/29/22 06:26 O2 Del Method Room Air 08/29/22 06:26 Allergies Allergy/AdvReac Type Severity Reaction Status Date / Time SHWETA Inhibitors AdvReac Mild unknown Verified 08/29/22 06:39 Cephalosporins AdvReac Mild unknown Verified 08/29/22 06:39 ranitidine AdvReac Mild unknown Verified 08/29/22 06:39 Home Medications Medication Instructions Recorded Confirmed Type aspirin 81 mg tablet,delayed 81 mg PO DAILY 01/17/19 08/29/22 History release (Adult Low Dose Aspirin) azelastine 137 mcg (0.1 %) nasal 137 mcg intranasal Q12H 11/14/20 08/29/22 History spray aerosol blood-glucose meter #1 ea 11/14/20 08/29/22 Rx fluticasone propionate 50 1 spray intranasal BID #16 grams 02/18/21 08/29/22 Rx mcg/actuation nasal spray,suspension lancets #200 ea 12/11/21 08/29/22 Rx rosuvastatin 5 mg tablet See Rx Instructions .Route 12/11/21 08/29/22 Rx .COMPLEX #90 tabs blood sugar diagnostic (Blood #50 ea 04/16/22 08/29/22 Rx Glucose Test strips) blood-glucose meter (Accu-Chek #1 ea 04/25/22 08/29/22 Rx Guide Glucose Meter) pantoprazole 20 mg tablet,delayed See Rx Instructions .Route 05/22/22 08/29/22 Rx release .COMPLEX #90 tabs losartan 50 mg tablet See Rx Instructions .Route 06/17/22 08/29/22 Rx .COMPLEX #90 tabs metformin 500 mg tablet See Rx Instructions .Route 06/17/22 08/29/22 Rx .COMPLEX #180 tabs cetirizine 10 mg tablet (Zyrtec) 10 mg PO DAILY 08/14/22 08/29/22 History ferrous sulfate 325 mg (65 mg 325 mg PO EVERY OTHER DAY 08/14/22 08/29/22 History iron) tablet gabapentin 100 mg capsule See Rx Instructions .Route 08/25/22 08/29/22 Rx .COMPLEX #180 caps furosemide 20 mg tablet See Rx Instructions .Route 08/28/22 08/29/22 Rx .COMPLEX #90 tabs Laboratory Tests 08/29/22 06:32 POC Capillary Glucose 136 H mg/dl (65-105) Patient hx anesthesia problems: none Family hx anesthesia problems: none Results Review: All pre-operative results and documents have been reviewed as part of the pre-operative evaluation. [facility] Past Medical History Medical History Allergic rhinitis Arthritis of knee Bilateral knee pain Borderline diabetes BP (high blood pressure) Constipation Contusion of left wrist, sequela Degenerative joint disease of knee Ganglion, finger joint of right hand GERD (gastroesophageal reflux disease) Laryngitis Left knee DJD Mixed hyperlipidemia Obesity (BMI 30.0-34.9) Pollen allergies Right knee DJD Seasonal allergies Surgical History Surgical History History of cataract surgery Bilateral with lens implants History of dilatation and curettage S/P breast biopsy, left Family History Family History Mother Hypertension Family history of arthritis Father Cerebrovascular accident Family history of diabetes mellitus in first degree relative Family history of lung cancer Family history of heart disease in male family member before age 55 Other Diabetes mellitus Family history of malignant neoplasm Social History Social History Social History: Smoking status: Never smoker Second hand tobacco smoke exposure: No Alcohol intake: never Substance use: never Substance use type: does not use Living arrangements: with family Occupation/Education: retired [employer]
--- NOTE | 2022-08-29 07:29 | PM.HPGS ---
History of Present Illness History of Present Illness Consent: Risks, benefits, and alternatives have been discussed and questions answered. Patient agrees to proceed with procedure. Chief complaint: neoplasm screening Narrative: Trupti Roy is a 72 year old female with history of polyps, last colonoscopy 5 years ago Review of Systems Constitutional: Constitutional: Denies headache(s) and Denies weakness Eyes: Eyes: Denies blurry vision ENT: Reports Normal hearing present, Denies headache(s) and Denies neck pain Cardiovascular: Cardiovascular: Denies chest pain and Denies dyspnea Respiratory: Respiratory: Denies dyspnea Gastrointestinal: Gastrointestinal: Reports no additional gastrointestinal complaints Genitourinary: Genitourinary: Denies dysuria Musculoskeletal: Musculoskeletal: Denies neck pain Integumentary/Breasts: Skin/Breast: Denies dry skin Neurologic: Reports Normal hearing present, Denies headache(s) and Denies weakness Psychiatric: Psychiatric: Denies anxiety Endocrine: Endocrine: Denies change in body appearance Hematologic/Lymphatic: Hematologic/Lymphatic: Denies easy bleeding Allergic/Immunologic: Allergic/Immunologic: Denies urticaria PMFSH Past Medical History Medical History Allergic rhinitis Arthritis of knee Bilateral knee pain Borderline diabetes BP (high blood pressure) Constipation Contusion of left wrist, sequela Degenerative joint disease of knee Ganglion, finger joint of right hand GERD (gastroesophageal reflux disease) Laryngitis Left knee DJD Mixed hyperlipidemia Obesity (BMI 30.0-34.9) Pollen allergies Right knee DJD Seasonal allergies Surgical History Surgical History History of cataract surgery Bilateral with lens implants History of dilatation and curettage S/P breast biopsy, left Family History Family History Mother Hypertension Family history of arthritis Father Cerebrovascular accident Family history of diabetes mellitus in first degree relative Family history of lung cancer Family history of heart disease in male family member before age 55 Other Diabetes mellitus Family history of malignant neoplasm Social History Social History Social History: Smoking status: Never smoker Second hand tobacco smoke exposure: No Alcohol intake: never Substance use: never Substance use type: does not use Living arrangements: with family Occupation/Education: retired Gender identity (if verbalized by the patient): Female Sexual Orientation (if Verbalized by the Patient): Straight or Heterosexual Spiritual care concerns: No Meds Home Medications and Allergies Home Medications Medication Instructions Recorded Confirmed Type aspirin 81 mg tablet,delayed 81 mg PO DAILY 01/17/19 08/29/22 History release (Adult Low Dose Aspirin) azelastine 137 mcg (0.1 %) nasal 137 mcg intranasal Q12H 11/14/20 08/29/22 History spray aerosol blood-glucose meter #1 ea 11/14/20 08/29/22 Rx fluticasone propionate 50 1 spray intranasal BID #16 grams 02/18/21 08/29/22 Rx mcg/actuation nasal spray,suspension lancets #200 ea 12/11/21 08/29/22 Rx rosuvastatin 5 mg tablet See Rx Instructions .Route 12/11/21 08/29/22 Rx .COMPLEX #90 tabs blood sugar diagnostic (Blood #50 ea 04/16/22 08/29/22 Rx Glucose Test strips) blood-glucose meter (Accu-Chek #1 ea 04/25/22 08/29/22 Rx Guide Glucose Meter) pantoprazole 20 mg tablet,delayed See Rx Instructions .Route 05/22/22 08/29/22 Rx release .COMPLEX #90 tabs losartan 50 mg tablet See Rx Instructions .Route 06/17/22 08/29/22 Rx .COMPLEX #90 tabs metformin 500 mg tablet See Rx Instructions .Route 06/17/22 08/29/22 Rx .COMPLEX #180 tabs cetirizine 10 mg tablet (Zyrtec) 10 m
[2022-08-29 07:44] VITALS: BP 108/70; PULSE 75; RESP 19; O2SAT 97
[2022-08-29 07:54] VITALS: BP 131/79; PULSE 68; RESP 20; O2SAT 100
[2022-08-29 08:04] VITALS: BP 140/83; PULSE 63; RESP 19; O2SAT 100
== END 2022-08-29 08:13 | disposition home or self-care (01) ==
PROVIDERS: PCP Nurse Practitioner Gerontology; Visit Provider Internal Medicine Gastroenterology
PROC: 0DJD8ZZ Inspection of Lower Intestinal Tract, Via Natural or Artificial Opening Endoscopic (ICD-10-PCS; CPT 45378; principal; 2022-08-29 07:30)
DX: Z12.11 Encounter for screening for malignant neoplasm of colon (principal); D12.4 Benign neoplasm of descending colon; K57.30 Diverticulosis of large intestine without perforation or abscess without bleeding; K64.8 Other hemorrhoids; I10 Essential (primary) hypertension; E78.2 Mixed hyperlipidemia; K21.9 Gastro-esophageal reflux disease without esophagitis; E66.9 Obesity, unspecified; Z68.33 Body mass index [BMI] 33.0-33.9, adult; Z79.82 Long term (current) use of aspirin; Z79.84 Long term (current) use of oral hypoglycemic drugs
CPT/HCPCS: 45385; 82948; 88305; J2704; J7120

== ENCOUNTER → 2022-12-09 10:47 | Outpatient (CLI) | payer MEDICARE, OTHER, SELFPAY ==
--- NOTE | ~2022-12-09 | XR_ITS ---
Left foot Technique: AP, oblique, and lateral views were obtained. Clinical History: Pain Findings: No acute fracture or dislocation is seen. Osseous alignment is anatomic. There are mild to moderate degenerative changes of the second through fourth TMT joints.. Plantar calcaneal spur presen t. Soft tissues are unremarkable. Impression: No fracture or dislocation seen. Degenerative changes of the midfoot, as detailed above. Reviewed, dictated and finalized at location . Impression: No fracture or dislocation seen. Degenerative changes of the midfoot, as detailed above.
--- NOTE | ~2022-12-09 | XR_ITS ---
Left ankle Technique: AP, oblique, and lateral views were obtained. Clinical History: Pain Findings: No acute fracture or dislocation is seen. Osseous alignment is anatomic. Ankle mortise is i ntact. There are mild to moderate degenerative changes at the tarsal metatarsal articulations. Planta r calcaneal spur present. Soft tissues are otherwise unremarkable. Impression: Minimal degenerative changes, as above. No fracture or dislocation seen. Reviewed, dictated and finalized at location M. Impression: Minimal degenerative changes, as above. No fracture or dislocation seen.
== END ==
PROVIDERS: PCP Physician Assistant; Visit Provider Physician Assistant
DX: M79.672 Pain in left foot (principal)
CPT/HCPCS: 73610; 73630

== ENCOUNTER 2024-05-16 13:26 | Outpatient (CLI) | payer MEDICARE, OTHER, SELFPAY ==
--- NOTE | ~2024-05-16 | DEXA_ITS ---
Bone Density Report Name: EDU WONG Age: 73 Sex: Female Ethnicity: White Date of : 1950 Indication: postmenopausal; screening for osteoporosis; parental hip fracture; height loss; cancer; rheumatoid arthritis; Referring Provider: JULIA, FLOR Study: Bone densitometry was performed. Exam Date: May 16, 2024 Accession number: [id number] Bone Density: Region BMD T-score Z-score Classification AP Spine(L1-L4) 0.970 -0.7 1.6 Normal Femoral Neck (Left) 0.646 -1.8 0.2 Osteopenia Total Hip (Left) 0.858 -0.7 1.0 Normal Femoral Neck (Right) 0.648 -1.8 0.2 Osteopenia Total Hip (Right) 0.868 -0.6 1.1 Normal Total Hip Mean 0.863 -0.7 1.1 Normal World Health Organization criteria for BMD impression classify patients as: Normal (T-score at or above -1.0), Osteopenia (T-score between -1.0 and -2.5), or Osteoporosis (T-score at or below -2.5). 10-year Fracture Risk(1): Major Osteoporotic Fracture 29% Hip Fracture 19% Reported Risk Factors: [place] (), Neck BMD=0.646, BMI=33.1, parental fracture, smoking, rheumatoid arthritis (1) FRAX(R) Version 3.08. Fracture probability calculated for an untreated patient. Fracture probability may be lower if the patient has received treatment. Clinical Information Provided by Patient: Parent has had a hip fracture Smokes Has rheumatoid arthritis Has used the following medications: Vitamin D Has the following medical conditions: Cancer Patient maximum height was 64.0 Menopause Age: 58 No regular weight bearing exercise Onset of menses at age 12 Number of children 3 Impression: The patient has low bone mass, based on the Left Femoral Neck T-score. The patient has an estimated ten-year risk of hip fracture of 19% and an estimated ten-year risk of major fracture of 29%, based on the WHO FRAX algorithm. The patient has risk factors, including: parental hip fracture, smoking. Discussion: BONE DENSITY IS LOW AT ONE OR MORE SKELETAL SITES. THE PATIENT'S BMD AND CLINICAL RISK FACTORS CONTRIBUTE TO THIS PATIENT'S HIGH RISK OF FRACTURE. This patient's lowest T-score is low at one or more skeletal sites. It meets the World Health Organization's (WHO) criteria for ?low bone mass? (T-score between -1.0 and -2.5). The patient's 10-year risk of hip fracture and 10 year risk of a major osteoporotic fracture as calculated by FRAX exceeds the threshold where pharmacological therapy is recommended by the National Osteoporosis Foundation (NOF). However, all treatment decisions require clinical judgment and consideration of individual patient factors, including patient preferences, comorbidities, previous drug use, risk factors not captured in the FRAX model (e.g., frailty, falls, vitamin D deficiency, increased bone turnover, interval significant decline in bone density) and possible under or overestimation of fracture risk by FRAX. The patient should follow a healthful lifestyle (good nutrition with adequate calcium and vitamin D, and appropriate weight-bearing exercise). Follow-Up: Consider a repeat BMD and Vertebral Fracture Assessment (VFA) exam in 2 years or sooner if medically necessary, to reassess this patient's status. Reported by: MARY on 05/16/2024 2:01:00 PM. Reviewed, dictated and finalized at location A.
--- OUTSIDE RECORDS SUMMARY | 2024-05-16 15:59 | XMS_ITS | Clinical Summary ---
Author Organization [facility] in [place] Address [address] [place] [address] Care Team Providers Care Rewinder Operator Helper Name Role Phone Adelita Boss MD Primary Care Provider Allergies No known active allergies Medications losartan (COZAAR) 50 mg tablet Take 50 mg by mouth daily [address] (PROTONIX) 20 mg EC tablet TK 1 T PO QD 2 9 Active furosemide (LASIX) 20 mg tablet Take 20 mg by mouth daily 3 9 Active ergocalciferol (VITAMIN D) 50,000 unit capsule TK 1 C PO WEEKLY 3 9 Active aspirin 81 mg enteric coated tablet Take 81 mg by mouth daily Active fluticasone propionate (FLONASE) 50 mcg/actuation nasal spray U 1 SPRAY IEN D 0 9 Active meclizine (ANTIVERT) 25 mg tablet TK 1 T PO TID PRF DIZZINESS 0 9 Active polyethylene glycol (MIRALAX) 17 gram/dose powder Mix the entire bottle with 64 oz of a clear liquid. Use as directed by the office for colonoscopy prep. 8 Active cholecalciferol (VITAMIN D-3) 2000 unit capsule 2,000 Units daily Active predniSONE (DELTASONE) 10 mg tablet 0 Active diclofenac sodium (VOLTAREN) 1 % gel CATHLEEN 2 GRAMS TO BILATERAL KNEES QID 0 Active Active Problems Problem Noted Date Diagnosed Date Essential (primary) hypertension 08/06/2011 Gastro-esophageal reflux disease without esophag itis 08/06/2011 Nontoxic single thyroid nodule 08/06/2011 HTN (hypertension) Pre-diabetes Chronic joint pain Thyroid disease Resolved Problems Problem Noted Date Diagnosed Date Resolved Date Squamous cell carcinoma of right lower leg 08/27/2018 09/23/2018 Assessment & Plan (10/21/2018 9:33 AM CDT): About 6 weeks s/p excision with complex closure the right medial distal lower leg Healing well, no complications or signs of infection reported or noted on exam. Scar massage discussed. Will return p.r.n. Assessment & Plan (09/23/2018 9:42 AM CDT): 2 weeks status post excision Healing well with no evidence of infection. The erythema noted today is consistent with suture irritation. Sutures removed today and wound care administered. We discussed she should leave the area clean and dry for 2 days. After 2 days, she can begin to wash the area with soap and water, pat dry, and apply Vaseline until healed. We also discussed the importance of sun protection and scar massage. She will return to see us at the 6 week postoperative christiano for final evaluation. Assessment & Plan (08/27/2018 9:27 AM CDT): Medial, distal Biopsy proven by Dr. Ohara, lesion extended to [address] Chance discussed treating this with excision in the clinic, 30 minutes. Risks, benefits, and recovery were discussed. Patient would like to proceed. She will return next at the time of her procedure. Surgical History Surgery Date Site/Laterality Comments MOLE REMOVAL SKIN CANCER EXCISION EXCISION / BIOPSY BREAST / N IPPLE / DUCT 03/02/1975 - 03/01/1976 Left FA EXCISION / BIOPSY BREAST / N IPPLE / DUCT Left Benign Medical History Medical History Date Comments HTN (hypertension) Pre-diabetes Chronic joint pain Thyroid disease Family History Medical History Relation Name Comments Cancer Father Diabetes Father Stroke Father Hypertension Mother Breast cancer Neg Hx Relation Name Status Comments Father Mother Social History Tobacco Use Types Packs/Day Years Used Date Smoking Tobacco: Never Smokeless Tobacco: Never Personal Safety Answer Date Recorded Getting School Help Needed Not on file 05/16 Comments No Sex and Gender Information Value Date Recorded Sex Assigned at Not on file Legal Sex Female 2:00 PM CDT Gender Identity Not on file Sexual Orientation Not on file Obstetrics History Last Filed Vital Signs Vital Sign Reading Time Taken Comments Blood Pressure 109/74 08/27/2018 8:46 AM CDT Pulse 75 08/27/2018 8:46 AM CDT Temperature - - Respiratory Rate - - Oxygen Saturation - - Inhaled Oxygen Concentration - - Weight 79.5 kg (175 lb 3.2 oz) 10/31/2019 10:40 AM CDT Height 161.3 cm (5' 3.5 ) 10/31/2019 10:40 AM CD T Body Mass Index 30.54 10/31/2019 10:40 AM CDT Plan of Treatment Health Maintenance Due Date Last Done Comments Colon Cancer Screening-Colonoscopy 1950 Depression Screening 1950 Fall Risk Assessment 1950 Hepatitis C Screening 1950 Osteoporosis Screening-Bone Density Scan 1950 DTaP/Tdap/Td Vaccine (1 - Tdap) 1961 Hepatitis B Screening 1968 Zoster Vaccine (1 of 2) 2000 Well Visit 65+ 08/12/2015 Covid-19 Vaccine (3 - 2023-2 5 season) 2023 05/15/2020, 04/24/2020 Influenza Vaccine (#1) 2023 9, 11/29/2017, 11/24/2016 Breast Cancer Screening-Mammogram 11/18/2024 11/19/2023, 11/10/2022, 11/07/2021, Additional history exists Pneumococcal vaccine 65+ Completed 11/29/2017, 11/01 Procedures Procedure Name Priority Date/Time Associated Diagnosis Comments SCREENING MAMMOGRAM BILATERAL W MAHESH Schedule Routine, Read Routine (OP Routine) 11/19/2023 11:52 AM CDT Encounter for screening mammogram for malignant neoplasm of breast from Last 3 Months or Most Recently Relevant to Health Maintenance Results * Screening Mammogram Bilateral W Mahesh (11/19/2023 11:52 AM CDT) Anatomical Region Laterality Modality Breast Bilateral Mammography Impressions 11/19/2023 12:14 PM CDT BI-RADS ATLAS category (overall): 1 - Negative There is no mammographic evidence of malignancy. A 1 year screening mammogram is recommended. The patient has been or will be contacted. We recommend annual screening mammography for women at average risk of breast cancer beginning at age 40, based on guidelines of the [place] [employer] (ACR Practice Parameter for the Performance of Screening and Diagnostic Mammography) and [place] [employer]. For women with and elevated risk of breast cancer, please refer to the ACR Practice Parameter for specific screening recommendations. The patient will be entered into a reminder system with a target due date of 1 year for her next screening exam. Narrative 11/19/2023 12:14 PM CDT There are benign calcifications in the left breast. Screening Mammogram Bilateral W Mahesh: 11/19/23 The study was acquired using full field digital technology and interpreted from soft copy. 2D digital mammographic views, as well as 3D digital tomosynthesis were performed in the CC and MLO projections. CLINICAL: Encounter for screening mammogram for malignant neoplasm of breast. No relevant medical history has been documented for this patient. History of breast cancer in Neg Hx. COMPARISONS: 11/10/2022 Screening Mammogram Bilateral W Mahesh 11/07/2021 Screening Mammogram Bilateral W Mahesh 11/01/2020 Screening Mammogram Bilateral W Mahesh 10/31/2019 Diagnostic Mammogram Bilateral W Mahesh 04/26/2019 US Breast Right Limited BREAST TISSUE: The breasts are almost entirely fatty. FINDINGS: There is no new suspicious finding in either breast on mammogram. Maria M Meneses NP IMG MAMMO PROCEDURES Final Result from Last 3 Months or Most Recently Relevant to Health Maintenance Insurance [employer] [place] [id number] MEDICARE [facility] Care Teams Rewinder Operator Helper Relationship Specialty Start Date End Date Adelita Boss MD [address] [facility] [address] [place] [address] PCP - General Family Medicine 08/27/18
--- OUTSIDE RECORDS SUMMARY | 2024-05-16 15:59 | XMS_ITS | Referral Summary ---
Author Organization [facility] in [place] Address [address] [place] [address] Care Team Providers Care Supervisor Poultry Processing Name Role Phone Adelita Boss MD Primary [...] next at the time of her procedure. Social History Tobacco Use Types Packs/Day Years Used Date Smoking Tobacco: Never Smokeless Tobacco: Never Personal Safety Answer Date Recorded Getting School Help Needed Not on file 05/16 Comments No Sex and Gender Information Value Date Recorded Sex Assigned at Not on file Legal Sex Female 2:00 PM CDT Gender Identity Not on file Sexual Orientation Not on file Last Filed Vital Signs Vital Sign Reading [...] 10/31/2019 10:40 AM CDT Plan of Treatment Not on file Procedures Procedure Name Priority Date/Time Associated Diagnosis [...] age 40, based on guidelines of the [place] [employer] (ACR Practice Parameter for the Performance of Screening and Diagnostic Mammography) and [place] [employer]. For women [...] Recently Relevant to Health Maintenance [place] [employer] [employer] [place] Member Subscriber Plan / Payer (Ef fective 2018-Present) Name:Trupti Roy William Relation to Subscriber:Self Name:Trupti Roy Payer ID:[id number] Group ID:Not on file Type:COMMERCIAL Address: [address] [place] [employer] [place] Care Teams Supervisor Poultry Processing Relationship Specialty Start Date End Date Adelita Boss MD [address] [facility] [address] [place] [address] PCP - General Family Medicine 08/27/18
--- OUTSIDE RECORDS SUMMARY | 2024-05-16 15:59 | XMS_ITS | Clinical Summary ---
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
--- OUTSIDE RECORDS SUMMARY | 2024-05-16 15:59 | XMS_ITS | Clinical Summary ---
Author Organization [facility] Address [address], [address] [address] Phone Care Team Providers Care Peripatologist Name Role Phone Adelita Boss MD Primary Care Provider [phone] Kathia Morrison MD Unavailable [phone] Otto Hoffmann DO Unavailable [phone] 3 Medications polyethylene glycol (MIRALAX) Powder Mix the entire bottle with 64 oz of a clear liquid. Use as directed by the office for colonoscopy prep. 255 g 8 Active Immunizations Immunization Administration Dates Next Due Covid-19, Mrna, Lnp-s, Pf, 30 Mcg/0.3 Ml Dose (P fizer) 05/15/2020,04/24/2020 Social History Tobacco Use Types Packs/Day Years Used Date Smoking Tobacco: Never Assessed Comments Unknown Sex and Gender Information Value Date Recorded Sex Assigned at Not on file Legal Sex Female 11:54 PM CDT Gender Identity Not on file Sexual Orientation Not on file Plan of Treatment Health Maintenance Due Date Last Done Comments DEXA Bone Density 1950 Hepatitis C Virus (HCV) Screening 1950 Cologuard 2000 Immunochemical Fecal Occult Blood 2000 Mammogram 2000 Colonoscopy 08/20/2022 08/20/2017 Colorectal Cancer Screening 08/20/2022 Influenza Immunization (#1) 11/01/202310/31, 11/23/2018, 11/29/2017, Additional history exists SARS-COV-2 Immunization ( season) 2023 12/07/2020, 05/15/2020, 04/24/2020 Respiratory Syncytial Virus (RSV) Immunization (Adult) (1 - 1-dose 75+ series) 2025 08/20/2017 Pneumococcal Immunization (50+ years) Completed 11/29/2017, 11/24/2016 Pneumococcal Immunization Combined Discontinued 11/29/2017, 11/24/2016 DTaP/Tdap/Td Immunization Discontinued 2019 TdaP Immunization Completed 2019 Zoster Immunization Completed 01/16/2020, 0 Hepatitis B Immunization Aged Out No longer eligible based on patient's age to complete this topic Meningococcal Immunization (ACWY) Aged Out No longer eligible based on patient's age to complete this topic Rotavirus Immunization Aged Out No lo nger eligible based on patient's age to complete this topic Procedures Procedure Name Priority Date/Time Associated Diagnosis Comments COLONOSCOPY Routine 08/20/2017 from Last 3 Months or Most Recently Relevant to Health Maintenance Results * COLONOSCOPY (08/20/2017) Otto Hoffmann DO PROCEDURE/MINOR SURGICAL ORDERA BLES Final Result from Last 3 Months or Most Recently Relevant to Health Maintenance Insurance MEDIC[employer] [place] Care Teams Peripatologist Relationship Specialty Start Date End Date Adelita Boss MD [address] [place], [place] [id number] PCP - General Family Medicine 04/15/17 Kathia Morrison MD [address] [place] [address] Obstetrics & Gynecology 04/15/17 Otto Hoffmann DO [address] [place], [place] [id number] Gastroenterology 08/25/17
--- OUTSIDE RECORDS SUMMARY | 2024-05-16 15:59 | XMS_ITS | Encounter Summary ---
Author Organization [employer] Address 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
== END 2024-05-16 13:27 | disposition home or self-care (01) ==
LOC: ANHIMG 13:28
PROVIDERS: PCP Family Medicine; Visit Provider Nurse Practitioner Women's Health
DX: Z13.820 Encounter for screening for osteoporosis (principal); Z78.0 Asymptomatic menopausal state; M85.852 Other specified disorders of bone density and structure, left thigh; M85.851 Other specified disorders of bone density and structure, right thigh
CPT/HCPCS: 77080

== ENCOUNTER 2024-06-06 09:17 | Outpatient (CLI) | payer MEDICARE, OTHER, SELFPAY ==
--- NOTE | ~2024-06-06 | XR_ITS ---
Lumbosacral Spine: AP and lateral views Clinical History: Pain Findings: The normal lordotic curve is maintained. No fracture. There is minimal grade 1 retrolisthes is of L2 over L3. There is moderate degenerative disc narrowing at L5-S1. There is moderate facet art hropathy at the lower lumbar spine. The sacroiliac joints are normally outlined. Impression: Mild to moderate degenerative spondylosis, as above. Reviewed, dictated and finalized at location M. Impression: Mild to moderate degenerative spondylosis, as above.
== END 2024-06-06 09:18 | disposition home or self-care (01) ==
PROVIDERS: PCP Family Medicine; Visit Provider Student in an Organized Health Care Education/Training Program
DX: M47.897 Other spondylosis, lumbosacral region (principal)
CPT/HCPCS: 72100